=== PATIENT | male | born 2000 | race African-American/Black ===

== ENCOUNTER 2020-01-29 23:02 | Emergency (ER) | payer SELFPAY ==
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
[2020-01-29] MEDS ORDERED: Acetaminophen/oxyCODONE 325-5 MG Tab PO ONE (23:18)
[2020-01-29] MEDS ORDERED: Bacitracin Oint 1 GM U/D Packet TOP ONE (23:50)
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
== END 2020-01-30 00:29 | disposition home or self-care (01) ==
LOC: MW.ED 23:03
DX: S52.501A Unspecified fracture of the lower end of right radius, initial encounter for closed fracture (principal); V86.59XA Driver of other special all-terrain or other off-road motor vehicle injured in nontraffic accident, initial encounter
CPT/HCPCS: 29125; 73090; 99284; A9270; 99283

== ENCOUNTER 2020-02-09 11:07 | Day surgery (SDC) | payer MEDICAID ==
[~2020-02-09 11:07] MED LIST: Lactated Ringers 1,000 ML IV SCH; ceFAZolin 2 GM in Premix Bag 1 BAG IV SCH
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
[2020-02-09] MEDS ORDERED: Propofol 200 MG/20 ML SDV ONE ×2 (13:11→14:40)
[2020-02-09] MEDS ORDERED: Midazolam 1 MG/ML 2 ML SDV ONE (13:11)
[2020-02-09] MEDS ORDERED: fentaNYL 250 MCG/5 ML SDV ONE (13:11)
[2020-02-09] MEDS ORDERED: Dexamethasone 4 MG/ML 5 ML MDV ONE (13:13)
[2020-02-09] MEDS ORDERED: Ondansetron 4 MG/2 ML SDV ONE (13:13)
[2020-02-09] MEDS ORDERED: ceFAZolin 1 GM Vial ONE (13:14)
[2020-02-09] MEDS ORDERED: Sodium Chloride 0.9% 20 ML ONE (13:14)
[2020-02-09] MEDS ORDERED: Bupivacaine 0.25% 10 ML SDV ONE (15:15)
[2020-02-09] MEDS ORDERED: fentaNYL 100 MCG/2 ML SDV IVPUSH PRN (16:27)
[2020-02-09] MEDS ORDERED: Acetaminophen/oxyCODONE 325-5 MG Tab PO PRN (16:27)
[2020-02-09] MEDS ORDERED: Ketorolac 30 MG/ML SDV IVPUSH ONE (16:27)
[2020-02-09] MEDS ORDERED: HYDROmorphone 2 MG/ML Syringe IVPUSH ONE (16:28)
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
--- NOTE | 2020-02-09 18:29 | PCM.POSTAN ---
POST ANESTHESIA ASSESSMENT - MENTAL STATUS Mental Status: Alert, Oriented - VITAL SIGNS Vital Signs: Last Vital Signs Temp 98 F 02/09/20 17:27 Pulse 64 02/09/20 17:11 Resp 15 02/09/20 17:48 BP 152/81 H 02/09/20 17:48 Pulse Ox 95 02/09/20 17:48 - RESPIRATORY Respiratory Status: Respiratory Rate WNL, Airway Patent, O2 Saturation Stable - CARDIOVASCULAR CV Status: Pulse Rate WNL, Blood Pressure Stable - GASTROINTESTINAL GI Status: No Symptoms - POST OP HYDRATION Hydration Status: Adequate & Stable
--- NOTE | 2020-02-09 19:40 | PCM48HPAN ---
Post Anesthesia Note - EVALUATION WITHIN 48HRS OF ANESTHETIC Vital Signs in Normal Range: Yes Patient Participated in Evaluation: Yes Respiratory Function Stable: Yes Airway Patent: Yes Cardiovascular Function Stable: Yes Hydration Status Stable: Yes Pain Control Satisfactory: Yes Nausea and Vomiting Control Satisfactory: Yes Mental Status Recovered: Yes Vital Signs: Last Vital Signs Temp 98 F 02/09/20 17:27 Pulse 64 02/09/20 17:11 Resp 16 02/09/20 18:33 BP 134/70 02/09/20 18:33 Pulse Ox 95 02/09/20 18:33
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
== END 2020-02-09 19:37 | disposition home or self-care (01) ==
LOC: MW.SDS 11:07 → MW.ICU 17:06 → MW.SDS 19:37
PROVIDERS: ATTEND Orthopaedic Surgery
DX: S52.301A Unspecified fracture of shaft of right radius, initial encounter for closed fracture (principal); F17.210 Nicotine dependence, cigarettes, uncomplicated; V86.99XA Unspecified occupant of other special all-terrain or other off-road motor vehicle injured in nontraffic accident, initial encounter
CPT/HCPCS: 25515; 76000; J0690; J1100; J1170; J1885; J2001; J2250; J2405; J2704; J3010; J3490; J7120

== ENCOUNTER 2022-05-27 11:57 | Emergency (ER) | payer SELFPAY ==
[2022-05-27] MEDS ORDERED: Ketorolac 60 MG/2 ML SDV IM ONE (12:22)
[2022-05-27 13:26] LABS: CORONAVIRUS COVID-19 NAA POSITIVE (NEGATIVE); INFLUENZA A NAA NEGATIVE (NEGATIVE); INFLUENZA B NAA NEGATIVE (NEGATIVE)
[2022-05-27 13:37] LABS: CARBON DIOXIDE,CO2 29.9 mmol/L (21.0-32.0); POTASSIUM,K 4.3 mmol/L (3.5-5.1)
== END 2022-05-27 14:32 | disposition home or self-care (01) ==
LOC: MW.ED 11:57
DX: U07.1 COVID-19 (principal)
CPT/HCPCS: 0240U; 36415; 71046; 80053; 84484; 85025; 96372; 99285; J1885; 93010; 99283

== ENCOUNTER 2022-12-09 13:59 | Emergency (ER) | payer SELFPAY ==
[2022-12-09] MEDS ORDERED: Cephalexin 500 MG Cap PO ONE (16:02)
[2022-12-09] MEDS ORDERED: traMADol 50 MG Tab PO ONE (16:02)
== END 2022-12-09 16:55 | disposition home or self-care (01) ==
LOC: MW.ED 13:59
DX: S67.21XA Crushing injury of right hand, initial encounter (principal); W22.8XXA Striking against or struck by other objects, initial encounter
CPT/HCPCS: 73090; 73130; 99283; A9270